=== PATIENT | female | born 1945 | race Caucasian/White ===

== ENCOUNTER → 2021-10-20 10:13 | Outpatient (BNVA) | payer OTHER, SELFPAY | PROVIDERS: PCP Internal Medicine; Visit Provider Nurse Practitioner Family | DX: Z13.89 Encounter for screening for other disorder (principal) ==

== ENCOUNTER → 2022-12-26 07:22 | Outpatient (BNVA) | payer OTHER, SELFPAY | PROVIDERS: PCP Internal Medicine; Visit Provider Psychiatry & Neurology Neurology ==

== ENCOUNTER 2023-04-19 11:20 | Outpatient (AMB) | payer OTHER, SELFPAY ==
--- NOTE | 2023-04-19 11:24 | A.OFFVIS_ITS ---
Intake Vital Signs 04/19/23 11:26 Height 4 ft 9 in Weight 135 lb BMI 29.2 BP 122/58 L Blood Pressure Location Rt brachial Position Sitting Respiration 16 Pulse 85 Pulse Source Pulse Oximeter Pulse Oximetry (%) 95 Oxygen Delivery Method Room Air Intake Visit Reasons: 3m follow up Tremor-unable to lvm Intake Note: Pt presents to the office for a 3 month follow up tremors. Pt reports her tremors are a little worse. SHe states she thinks the gabapentin makes her very bloated, but she has continued to take it. She c/o really bad tingling of me feet . Allergies ciprofloxacin [From CIPRO] Allergy (Intermediate, Unverified 04/19/23 11:25) RASH From CIPRO Allergy (Intermediate, Uncoded 04/19/23 11:25) RASH Environmental Allergy (Unknown, Uncoded 04/19/23 11:25) SINUS PROBLEMS TO RAGWEED Medication List - Last Reconciled 04/19/23 by Sarai Garcias MD baclofen 5 - 20 mg (0.5 - 2 x 10 mg) PO DAILY PRN 30 days carisoprodol 350 mg PO TID PRN 7 days desvenlafaxine succinate ER 50 mg PO DAILY desvenlafaxine succinate ER 25 mg PO DAILY eszopiclone 3 mg PO BEDTIME PRN famotidine 40 mg PO BID fluoride (sodium) 1.1% (Denta 5000 Plus) appl PO BEDTIME gabapentin 200 mg (2 x 100 mg) PO QAM 90 days gabapentin 300 mg PO BID 90 days lamotrigine 225 mg PO BEDTIME lisinopril 20 mg PO DAILY memantine 14 mg PO DAILY memantine 21 mg PO DAILY HPI HPI Comments History of Present Illness Details 77yr-old female presents for f/u visit.s he is here for follow up of tremors, ? nerve pain - unbearable itching in her feet at rest, at night. Increase in gabapentin helped her. SHe also uses marijuana sometimes she also has spinal stenosis and cord ? compression.( DR. Marquez has reports ) she says she saw a neurosurgeon 4 years ago . she denies any new symptoms. SHe had an episode of muscle cramps in her neck area- about 7 months ago - she was given baclofen but not effective. she thinks carsiprodol would have helped but by the time she got the prescription filled. No further episodes since then. Pt denies any significant interval medical changes. She had 40 TMS treatments last year. she had another course of TMS and feels she did not respond.SHe is going to go on ketamine- Dr. Hansen She again wonders about ET plus diagnosis and risk for development of PD. Her tremor is worse. she has trouble writing She is having more fibromyalgia symptoms and muscle tightness.she reports intermittent swelling of distal LE. [facility] Medical History Foot pain, bilateral Restless legs syndrome (RLS) Depression Surgical History H/O wrist surgery Hx of cholecystectomy History of hip surgery Family History Father Diabetes Parkinsons disease Mother HBP (high blood pressure) Heart murmur Maternal Grandmother Parkinsons disease Maternal Uncle Parkinsons disease Social History Alcohol intake: current Alcohol intake frequency: holidays/special occasions only Patient Tobacco Use Status: Former Tobacco user Quit Date: 1990 Substance Use Type: Marijuana Physical Exam Vital Signs: Last Vital Signs Pulse 85 04/19/23 11:26 Resp 16 04/19/23 11:26 BP 122/58 L 04/19/23 11:26 Pulse Ox 95 04/19/23 11:26 Oxygen Delivery Method Room Air 04/19/23 11:26 BMI result Body Mass Index 29.2 Const General: cooperative and no acute distress Orientation/consciousness: patient oriented x3 HEENT Head: Yes normocephalic Resp Effort & Inspection: normal respiratory effort and [facility] Neuro Other: No tremors mild decreased FFM L>R Antalgic gait, decreased arm swings L>R No perioral movements General: patient oriented x3 and CN's II-XI intact bilaterally Cognition (Neuro): normal cognition Motor exam (neuro): 5/5 motor strength present throughout Deep tendon reflexes (DTR's): Right triceps reflex intensity grade: 2+, Left triceps reflex intensity grade: 2+, Rt Biceps (C5, C6): 2+, Left biceps reflex intensity grade: 2+, Right brachioradialis reflex intensity grade: 2+, Left brachioradialis reflex intensity grade: 2+, Right patellar reflex intensity grade: 3+ and Left patellar reflex intensity grade: 3+ Psych Appearance: grossly normal Mental Status: mental status grossly normal Speech and movement: Clear speech present Affect: normal affect Attitude: cooperative Thought process: Normal thought process present Thought content: Normal thought content present Insight: Good insight present (Psych) Judgement: Good judgement present (Psych) Assessment & Plan Assessment & Plan (1) Tremor: Comment: ? medication induced Code(s): R25.1 - Tremor, unspecified (2) Gait difficulty: Comment: spinal stenosis Code(s): R26.9 - Unspecified abnormalities of gait and mobility (3) Foot pain, bilateral: Comment: episodic severe pain, itching , more at rest and night ? akathesia? restless legs Code(s): M79.671 - Pain in right foot; M79.672 - Pain in left foot Plan Decrease Gabapentin 200mg bid I will add ropinirole XR 2mg qhs Tremors are mild - no evidence of parkinsons - will follow up clinically This was a counseling predominated session - more than 50 % of the times was spent on discussing her diagnosis, pain management etc. Memantine XR 28 mg for migraines and cognition Medications: New ropinirole ER 2 mg PO BEDTIME 30 tabs 3RF Changed From gabapentin may take extra 100mg q evening prn pain 200 mg (2 x 100 mg) PO QAM 270 caps 3RF 90 days To gabapentin 200 mg (2 x 100 mg) PO BID 360 caps 3RF 90 days From memantine 21 mg PO DAILY 30 ea 0RF To memantine 28 mg PO DAILY 30 ea 6RF Discontinued gabapentin Discontinued Reason: Patient no longer taking 300 mg PO BID 90 days 180 caps 1RF Coding Level of Care Code Est Pt Level 4 (65764) Diagnoses Tremor R25.1 Gait difficulty R26.9 Foot pain, bilateral M79.671; M79.672
[2023-04-19 11:26] VITALS: BP 122/58; PULSE 85; RESP 16; O2SAT 95; BMI 29.2
== END 2023-04-19 11:44 | disposition home or self-care (01) ==
PROVIDERS: PCP Internal Medicine; Visit Provider Psychiatry & Neurology Neurology
DX: R25.1 Tremor, unspecified (principal); R26.9 Unspecified abnormalities of gait and mobility; M79.671 Pain in right foot; M79.672 Pain in left foot
CPT/HCPCS: 99214

== ENCOUNTER → 2023-04-19 11:20 | Outpatient (BNVA) | payer OTHER, SELFPAY | PROVIDERS: PCP Internal Medicine; Visit Provider Psychiatry & Neurology Neurology | DX: R25.1 Tremor, unspecified (principal); R26.9 Unspecified abnormalities of gait and mobility; M79.671 Pain in right foot; M79.672 Pain in left foot ==

== ENCOUNTER 2023-09-10 12:35 | Outpatient (AMB) | payer OTHER, SELFPAY ==
--- NOTE | 2023-09-10 12:44 | A.OFFVIS_ITS ---
Intake Vital Signs 09/10/23 12:45 Height 4 ft 9 in Weight 135 lb BMI 29.2 BP 112/64 Blood Pressure Location Rt brachial Position Sitting Respiration 16 Pulse 89 Pulse Source Pulse Oximeter Pulse Oximetry (%) 98 Oxygen Delivery Method Room Air Intake Visit Reasons: 4 mnts f/u for Tremors-CONF Intake Note: Pt presents to the office for 4 month follow up for tremors. Retail Loss Prevention Officer Required: No Allergies ciprofloxacin [From CIPRO] Allergy (Intermediate, Unverified 09/10/23 12:45) RASH From CIPRO Allergy (Intermediate, Uncoded 09/10/23 12:45) RASH Environmental Allergy (Unknown, Uncoded 09/10/23 12:45) SINUS PROBLEMS TO RAGWEED HPI HPI Comments History of Present Illness Details 77yr-old female presents for f/u visit.s he is here for follow up of tremors. Nerve pain is better. Gabapentin with Ropinirole has helped her. SHe also uses marijuana sometimes she also has spinal stenosis and cord ? compression.( DR. Marquez has reports ) she says she saw a neurosurgeon 4 years ago . she denies any new symptoms. Pt denies any significant interval medical changes. She had 40 TMS treatments last year. she had another course of TMS and feels she did not respond.SHe did not do well with ketamine so she restarted TMS which seems to be helping now. She again wonders about ET plus diagnosis and risk for development of PD. She is having more fibromyalgia symptoms and muscle tightness.she reports intermittent swelling of distal LE. [facility] Medical History Foot pain, bilateral Restless legs syndrome (RLS) Depression Surgical History H/O wrist surgery Hx of cholecystectomy History of hip surgery Family History Father Diabetes Parkinsons disease Mother HBP (high blood pressure) Heart murmur Maternal Grandmother Parkinsons disease Maternal Uncle Parkinsons disease Social History Alcohol intake: current Alcohol intake frequency: holidays/special occasions only Patient Tobacco Use Status: Former Tobacco user Quit Date: 1990 Substance Use Type: Marijuana Physical Exam Vital Signs: Last Vital Signs Pulse 89 09/10/23 12:45 Resp 16 09/10/23 12:45 BP 112/64 09/10/23 12:45 Pulse Ox 98 09/10/23 12:45 Oxygen Delivery Method Room Air 09/10/23 12:45 BMI result Body Mass Index 29.2 Const General: cooperative and no acute distress Orientation/consciousness: patient oriented x3 HEENT Head: Yes normocephalic Resp Effort & Inspection: normal respiratory effort and able to speak in complete sentences Neuro Other: No tremors mild decreased FFM L>R Antalgic gait, decreased arm swings L>R No perioral movements General: patient oriented x3 and CN's II-XI intact bilaterally Cognition (Neuro): normal cognition Motor exam (neuro): 5/5 motor strength present throughout Deep tendon reflexes (DTR's): Right triceps reflex intensity grade: 2+, Left triceps reflex intensity grade: 2+, Rt Biceps (C5, C6): 2+, Left biceps reflex intensity grade: 2+, Right brachioradialis reflex intensity grade: 2+, Left brachioradialis reflex intensity grade: 2+, Right patellar reflex intensity grade: 3+ and Left patellar reflex intensity grade: 3+ Psych Appearance: grossly normal Mental Status: mental status grossly normal Speech and movement: Clear speech present Affect: normal affect Attitude: cooperative Thought process: Normal thought process present Thought content: Normal thought content present Insight: Good insight present (Psych) Judgement: Good judgement present (Psych) Assessment & Plan Assessment & Plan (1) Tremor: Comment: ? medication induced Code(s): R25.1 - Tremor, unspecified (2) Gait difficulty: Comment: spinal stenosis Code(s): R26.9 - Unspecified abnormalities of gait and mobility (3) Foot pain, bilateral: Comment: episodic severe pain, itching , more at rest and night ? akathesia? restless legs Code(s): M79.671 - Pain in right foot; M79.672 - Pain in left foot Plan Gabapentin 200mg bid Ropinirole XR 2mg qhs Tremors are mild - no evidence of parkinsons - will follow up clinically . Memantine XR 28 mg for migraines and cognition Coding Level of Care Code Est Pt Level 4 (84939) Diagnoses Tremor R25.1 Gait difficulty R26.9 Foot pain, bilateral M79.671; M79.672
[2023-09-10 12:45] VITALS: BP 112/64; PULSE 89; RESP 16; O2SAT 98; BMI 29.2
== END 2023-09-10 13:02 | disposition home or self-care (01) ==
LOC: HO.HSMS 12:35
PROVIDERS: PCP Internal Medicine; Visit Provider Psychiatry & Neurology Neurology
DX: R25.1 Tremor, unspecified (principal); R26.9 Unspecified abnormalities of gait and mobility; M79.671 Pain in right foot; M79.672 Pain in left foot
CPT/HCPCS: 99214

== ENCOUNTER → 2023-09-10 12:35 | Outpatient (BNVA) | payer OTHER, SELFPAY | PROVIDERS: PCP Internal Medicine; Visit Provider Psychiatry & Neurology Neurology ==

== ENCOUNTER 2024-03-10 10:31 | Outpatient (AMB) | payer OTHER, SELFPAY ==
--- NOTE | 2024-03-10 10:33 | MHC.OFFVIS ---
Vital Signs 03/10/24 10:35 Height 4 ft 9 in Weight 142 lb BMI 30.7 BP 136/68 Blood Pressure Location Rt brachial Position Sitting Respiration 16 Pulse 71 Pulse Source Pulse Oximeter Pulse Oximetry (%) 95 Oxygen Delivery Method Room Air Intake Visit Reasons: 6 mo f/u - CONF Intake Note: Pt presents for a 6 month follow up for tremors. Strand And Binder Controller Required: No Allergies ciprofloxacin [From CIPRO] Allergy (Intermediate, Verified 03/10/24 10:34) RASH From CIPRO Allergy (Intermediate, Uncoded 03/10/24 10:34) RASH Environmental Allergy (Unknown, Uncoded 03/10/24 10:34) SINUS PROBLEMS TO RAGWEED Medication List - Last Reconciled 03/10/24 by Sarai Garcias MD baclofen 5 - 20 mg (0.5 - 2 x 10 mg) PO DAILY PRN 30 days carisoprodol 350 mg PO TID PRN 7 days desvenlafaxine succinate ER 50 mg PO DAILY desvenlafaxine succinate ER 25 mg PO DAILY eszopiclone 3 mg PO BEDTIME PRN famotidine 40 mg PO BID fluoride (sodium) 1.1% (Denta 5000 Plus) appl PO BEDTIME gabapentin 200 mg (2 x 100 mg) PO BID 90 days lamotrigine 225 mg PO BEDTIME lisinopril 20 mg PO DAILY memantine 28 mg PO DAILY paroxetine HCl (Paxil) 20 mg PO DAILY ropinirole ER 2 mg PO BEDTIME HPI Comments Details: 78yr-old female presents for f/u visit.she is here for follow up of tremors.Tremors are stable she has pain in her shoulder neck etc.she has trouble walking. . Gabapentin with Ropinirole has helped her restless legs like symptoms. SHe also uses marijuana sometimes she also has spinal stenosis and cord ? compression.( DR. Marquez has reports ) she says she saw a neurosurgeon 4 years ago . she restarted TMS this year and is responding . She again wonders about ET plus diagnosis and risk for development of PD. She is having more fibromyalgia symptoms and muscle tightness. [facility] Medical History Foot pain, bilateral Restless legs syndrome (RLS) Depression Surgical History H/O wrist surgery Hx of cholecystectomy History of hip surgery Family History Father Diabetes Parkinsons disease Mother HBP (high blood pressure) Heart murmur Maternal Grandmother Parkinsons disease Maternal Uncle Parkinsons disease Social History Alcohol intake: current Alcohol intake frequency: holidays/special occasions only Patient Tobacco Use Status: Former Tobacco user Substance Use Type: Marijuana Physical Exam Vital Signs: Last Vital Signs Pulse 71 03/10/24 10:35 Resp 16 03/10/24 10:35 BP 136/68 03/10/24 10:35 Pulse Ox 95 03/10/24 10:35 Oxygen Delivery Method Room Air 03/10/24 10:35 BMI result Body Mass Index 30.7 Const General: cooperative and no acute distress Orientation/consciousness: patient oriented x3 HEENT Head: Yes normocephalic Resp Effort & Inspection: normal respiratory effort and able to speak in complete sentences Neuro Other: No tremors mild decreased FFM L>R Antalgic gait, decreased arm swings L>R No perioral movements General: patient oriented x3 and CN's II-XI intact bilaterally Cognition (Neuro): normal cognition Motor exam (neuro): 5/5 motor strength present throughout Psych Appearance: grossly normal Mental Status: mental status grossly normal Speech and movement: Clear speech present Affect: normal affect Attitude: cooperative Thought process: Normal thought process present Thought content: Normal thought content present Insight: Good insight present (Psych) Judgement: Good judgement present (Psych) Assessment & Plan Assessment & Plan (1) Tremor: Comment: ? medication induced Code(s): R25.1 - Tremor, unspecified Category: Medical (2) Gait difficulty: Comment: spinal stenosis Code(s): R26.9 - Unspecified abnormalities of gait and mobility Category: Medical (3) Foot pain, bilateral: Comment: episodic severe pain, itching , more at rest and night ? akathesia? restless legs Code(s): M79.671 - Pain in right foot; M79.672 - Pain in left foot Category: Medical Plan Gabapentin 200mg bid Ropinirole XR 2mg qhs Tremors are mild - no evidence of parkinsons - will follow up clinically . Memantine XR 28 mg for migraines and cognition PT for gait training and balance Orders: Orders PT Evaluation and Treatment Today R26.9 - Unspecified abnormalities of gait and mobility Scribe Plan - Not visible on output: Reviewed possible medication side effects, including but not limited to drowsiness, dizziness. Coding Level of Care Code Est Pt Level 4 (96036) Complex EM visit Add On G2211 Diagnoses Tremor R25.1 Gait difficulty R26.9 Foot pain, bilateral M79.671; M79.672
[2024-03-10 10:35] VITALS: BP 136/68; PULSE 71; RESP 16; O2SAT 95; BMI 30.7
== END 2024-03-10 10:58 | disposition home or self-care (01) ==
PROVIDERS: PCP Internal Medicine; Visit Provider Psychiatry & Neurology Neurology
DX: R25.1 Tremor, unspecified (principal); R26.9 Unspecified abnormalities of gait and mobility; M79.671 Pain in right foot; M79.672 Pain in left foot
CPT/HCPCS: 99214

== ENCOUNTER → 2024-03-10 10:31 | Outpatient (BNVA) | payer OTHER, SELFPAY | PROVIDERS: PCP Internal Medicine; Visit Provider Psychiatry & Neurology Neurology ==

== ENCOUNTER 2025-03-08 10:03 | Outpatient (AMB) | payer OTHER, SELFPAY ==
--- OUTSIDE RECORDS SUMMARY | 2024-12-30 06:15 | XMS_ITS ---
Author Organization [facility] Address [address] [place] [phone] Care Team Providers Care Monitor And Storage Bin Tender Name Role Phone JESSI GUSTAFSON Primary Care Provider REASON FOR VISIT 3mo Encounters Encounter Location Date Provider Diagnosis [facility] [address] [place] [address] 12/30/2024 JESSI GUSTAFSON PLAN OF TREATMENT Next Appt Details Provider Name:JESSI GUSTAFSON , 04/07/2025 09:30:00 AM, [address] [place], [address],
--- OUTSIDE RECORDS SUMMARY | 2024-12-30 09:15 | XMS_ITS ---
Author Organization [facility] Address [address] [place] [id number] Care Team Providers Care Combatant Diver Qualified Name Role Phone JESSI GUSTAFSON Primary Care Provider REASON FOR VISIT 41/ 3mo Encounters Encounter Location Date Provider Diagnosis [address] [address] 12/30/2024 JESSI GUSTAFSON PLAN OF TREATMENT Next Appt Details Provider Name:JESSI GUSTAFSON , 04/07/2025 09:30:00 AM, [address] [place], [address],
--- OUTSIDE RECORDS SUMMARY | 2024-12-30 11:02 | XMS_ITS ---
Author Organization [facility] Address [address] [place] [phone] Care Team Providers Care Lead Teacher Name Role Phone JESSI GUSTAFSON Primary Care Provider REASON FOR VISIT (w) Cancellation Encounters Encounter Location Date Provider Diagnosis [address] [address] 12/30/2024 JESSI GUSTAFSON PLAN OF TREATMENT Next Appt Details Provider Name:JESSI GUSTAFSON , 04/07/2025 09:30:00 AM, [address] [place], [address],
--- OUTSIDE RECORDS SUMMARY | 2025-01-04 12:00 | XMS_ITS ---
Author Organization [facility] Address [address] [place], [place] [id number] Care Team Providers Care Vegetable Grader Name Role Phone JESSI GUSTAFSON Primary Care Provider ALLERGIES Allergen (clinical drug ingredient) Drug/Non Drug Allergy documented on EMR Reaction Allergy Type Onset Date Status ciprofloxacin Cipro vomiting and diarrhea Drug Allergy Active REASON FOR VISIT 3 mo follow up, patient was started on Ritalin by her psychiatrist 'about a week ago' but does not know if LA or not or MG strangth MEDICATIONS Medication SIG (Take, Route, Frequency, Duration) Notes Start Date End Date Status LORazepam 0.5 MG 1 tablet as needed O rally Once a day Active Lunesta 3 MG 1 tablet immediately before bedtime Orally Once a day Active Robinul 1 MG 1 tablet Orally Once a day Active LaMICtal 150 MG 1 tablet Orally Once a day for 30 day(s) Active Gabapentin 100 MG 2 capsule Orally 2 t imes daily Active Wegovy 0.5 MG/0.5ML 0.5 mL Subcutaneous every 7 days for 28 day(s) 01/04/2025 Active Lisinopril 10 MG 1 1/2 tablet Orally Once a day Active fluvoxaMINE Maleate 25 MG 1 tablet Orall y Once a day Active Ritalin Active Baclofen 10 MG TAKE 1- 1 AND 1/2 TA BLET NEEDED ORALLY ONCE A DAY 90 DAYS for 90 Active Lidocaine HCl 5 % as directed External ly daily for 30 day(s) 06/04/2024 Active Triamcinolone Acetonide 0.1 % 1 application Externally Two times a day for 30 day(s) 06/03/2023 Active Famotidine 20 MG 1 tablet Orally Twic e a day for 90 days Active SOCIAL HISTORY Tobacco Use: Social History Observation Description Date Details (start date - stop date) Former Smoker NA - NA Sex Assigned At : Social History Observation Description Sex Assigned At Unknown Smoking Question Answer Notes Are you a: former smoker How long has it been since you last smoked? > 10 years VITAL SIGNS Height 55.00 in 01/04/2025 Weight 141.6 lbs 01/04/2025 Blood pressure systolic 116 mm Hg 01/05/20 25 Blood pressure diastolic 66 mm Hg 025 BMI 32.91 kg/m2 01/04/2025 Encounters Encounter Location Date Provider Diagnosis [facility] [address] [place] [address] 01/04/2025 JESSI GUSTAFSON Obesity, class 1 E66.811 and Essential (primary) hypertension I10 ASSESSMENTS Encounter Date Diagnosis Assessment Notes Treatment Notes Treatment Clinical Notes Section Notes 01/04/2025 Obesity, class 1 (ICD-10 - E66.811) 1.obesity: Tolerating initial dose of Wegovy. Will bump to 0.5 mg with her next fill and plan to recheck in 2 to 3 months. She will call with any side effect issues in the interim 2. Hypertension: Well-controlle d on present lisinopril. No changes made today 01/04/2025 Essential (primary) hypertension (ICD-10 - I10) 1.obesity: Tolerating initial dose of Wegovy. Will bump to 0.5 mg with her next fill and plan to recheck in 2 to 3 months. She will call with any side effect issues in the interim 2. Hypertension: Well-controlle d on present lisinopril. No changes made today PLAN OF TREATMENT Medication Medication Name Sig Start Date Stop Date Notes Wegovy 0.5 MG/0.5ML 0.5 mL Subcutaneous every 7 days for 28 day(s) 01/04/2025 Lisinopril 10 MG 1 1/2 tablet Orally Once a day Wegovy 0.25 MG/0.5ML 0.5 mL Subcutaneous every 7 days 08/29 Next Appt Details Provider Name:JESSI Richardson JANAY , 04/07/2025 09:30:00 AM, [address] [facility], [place], [address], Progress Notes * Examination Category Sub-Category Detail Notes Category Not es General Examination Heart: RSR, normal S1S2 Lungs: clear to auscultatio n Extremities: no edema General Appearance no apparent distress , pleasant Psych: alert, oriented X 3 Other normal affect History and Physical Notes * HPI (History of Present Illness) Category Sub-Category Detail Notes Category Not es General Patient is here for follow-up obesity issues. She has tolerated Wegovy at the initial dose. She has not lost much weight however thus far. She reports she was recently started on Ritalin by her psychiatrist and is found this helpful. She is feeling less tired and is able to be more active during the day. She has not had any nausea diarrhea or constipation with the Wegovy. She has had some heartburn which is responded to Tums
--- OUTSIDE RECORDS SUMMARY | 2025-01-18 06:30 | XMS_ITS ---
Author Organization [facility] Address [facility] [place], [place] [id number] Care Team Providers Care Irrigation Worker Name Role Phone JESSI GUSTAFSON Primary Care Provider REASON FOR VISIT (2) Wegovy MEDICATIONS Medication SIG (Take, Route, Frequency, Duration) Notes Start Date End Date Status Pantoprazole Sodium 40 MG 1 tablet 1/2 t o 1 hour before morning meal Orally Once a day for 30 day(s) 01/18/2025 Active PROBLEMS Problem Type ICD Code Onset Dates Problem Status W/U Status Risk SNOMED Code Notes Problem Chronic GERD (K21.9) Active confirmed [id number] Encounters Encounter Location Date Provider Diagnosis [address] [address] 01/18/2025 JESSI GUSTAFSON Chronic GERD K21.9 ASSESSMENTS Encounter Date Diagnosis Assessment Notes Treatment Notes Treatment Clinical Notes Section Notes 01/18/2025 Chronic GERD (ICD-10 - K21.9) PLAN OF TREATMENT Medication Medication Name Sig Start Date Stop Date Notes Pantoprazole Sodium 40 MG 1 tablet 1/2 t o 1 hour before morning meal Orally Once a day for 30 day(s) 01/18/2025 Next Appt Details Provider Name:JESSI Dylan GUSTAFSON , 04/07/2025 09:30:00 AM, [address] [place], [address],
--- NOTE | 2025-03-08 10:05 | A.OFFVIS_ITS ---
Vital Signs 03/08/25 10:06 Height 4 ft 9 in Weight 133 lb BMI 28.8 BP 122/68 Blood Pressure Location Lt brachial Position Sitting Pulse 113 H Pulse Source Pulse Oximeter Pulse Oximetry (%) 98 Oxygen Delivery Method Room Air Intake Visit Reasons: 1 yr follow up Intake Note: Follow up Unspecified abnormalities of gait and mobility, tremors - ? medication induced Corporate Specialist Required: No Accompanied by: Self / Same As Patient Allergies ciprofloxacin (From CIPRO) Allergy (Intermediate, Verified 03/08/25 10:06) RASH From CIPRO Allergy (Intermediate, Uncoded 03/10/24 10:34) RASH Environmental Allergy (Unknown, Uncoded 03/10/24 10:34) SINUS PROBLEMS TO RAGWEED HPI Comments Details: 79yr-old female presents for f/u visit.she is here for follow up of tremors.Tremors are stable she reports increase in foot pain mainly plantar area.- lidocaine helps .No falls. History from 1 year ago 2023-Tremors are stable she has pain in her shoulder neck etc.she has trouble walking. . Gabapentin with Ropinirole has helped her restless legs like symptoms. SHe also uses marijuana sometimes she also has spinal stenosis and cord ? compression.( DR. Marquez has reports ) she says she saw a neurosurgeon 4 years ago . she restarted TMS this year and is responding . She again wonders about ET plus diagnosis and risk for development of PD. She is having more fibromyalgia symptoms and muscle tightness. [facility] Medical History Foot pain, bilateral Restless legs syndrome (RLS) Depression Surgical History H/O wrist surgery Hx of cholecystectomy History of hip surgery Family History Father Diabetes Parkinsons disease Mother HBP (high blood pressure) Heart murmur Maternal Grandmother Parkinsons disease Maternal Uncle Parkinsons disease Social History Alcohol intake: current Alcohol intake frequency: holidays/special occasions only Patient Tobacco Use Status: Former Tobacco user Substance Use Type: Marijuana Physical Exam Vital Signs: Last Vital Signs Pulse 113 H 03/08/25 10:06 BP 122/68 03/08/25 10:06 Pulse Ox 98 03/08/25 10:06 Oxygen Delivery Method Room Air 03/08/25 10:06 BMI result Body Mass Index 28.8 Const General: cooperative and no acute distress Orientation/consciousness: patient oriented x3 HEENT Head: Yes normocephalic Resp Effort & Inspection: normal respiratory effort and able to speak in complete sentences Neuro Other: No tremors mild decreased FFM L>R Antalgic gait, decreased arm swings L>R No perioral movements General: patient oriented x3 and CN's II-XI intact bilaterally Cognition (Neuro): normal cognition Motor exam (neuro): 5/5 motor strength present throughout Psych Appearance: grossly normal Mental Status: mental status grossly normal Speech and movement: Clear speech present Affect: normal affect Attitude: cooperative Thought process: Normal thought process present Thought content: Normal thought content present Insight: Good insight present (Psych) Judgement: Good judgement present (Psych) Assessment & Plan Assessment & Plan (1) Tremor: Comment: ? medication induced Code(s): R25.1 - Tremor, unspecified Category: Medical (2) Gait difficulty: Comment: spinal stenosis Code(s): R26.9 - Unspecified abnormalities of gait and mobility Category: Medical (3) Foot pain, bilateral: Comment: episodic severe pain, itching , more at rest and night ? akathesia? restless legs Code(s): M79.671 - Pain in right foot; M79.672 - Pain in left foot Category: Medical Plan Gabapentin 200mg bid Ropinirole XR 2mg qhs Tremors are mild - no evidence of parkinsons - will follow up clinically . Memantine XR 28 mg for migraines and cognition PT- she declines Scribe Plan - Not visible on output: Reviewed possible medication side effects, including but not limited to drowsiness, dizziness. Coding Level of Care Code Est Pt Level 4 (31742) Complex EM visit Add On G2211 Diagnoses Tremor R25.1 Gait difficulty R26.9 Foot pain, bilateral M79.671; M79.672
[2025-03-08 10:06] VITALS: BP 122/68; PULSE 113; O2SAT 98; BMI 28.8
--- OUTSIDE RECORDS SUMMARY | 2025-03-08 11:51 | XMS_ITS | Patient Health Record ---
Author Organization [facility] Dilmary liriano [place] Address [address] [address] Care Team Providers Care Office Assistance Name Role Phone Sameer Marquez MD Primary Care Provider Unavailab Tristin Coats Unavailable [phone] Allergies Allergen (clinical drug ingredient) Drug/Non Drug Allergy documented on EMR Reaction Allergy Type Onset Date Status Ceftin vomiting Drug Allergy Active ciprofloxacin Cipro vomiting, diarrhea Drug Allergy Active meperidine Demerol Unknown Drug Allergy Active Keflex vomiting Drug Allergy Active Levaquin vomiting, diarrhea Drug Allergy Active cefaclor Cefaclor vomiting Drug Allergy Active Reason For Referral No Information Medications Medication SIG (Take, Route, Frequency, Duration) Notes Start Date End Date Status Lisinopril 10/2.5 mg Not-Taking Gabapentin 500MG Active LaMICtal 150 MG 2 tablets Orally Twi ce a day Active Clotrimazole-Betamethason e 1-0.05 % 1 application to affected area Externally Twice a day to affected areas on feet; Duration: 30 days 12/27/2021 Active Pexeva 60 MG 1 tablet in the morn ing Orally Once a day; Duration: 30 day(s) Not-Taking Famotidine 40 MG 1 tablet at bedtime Orally Once a day Active Wellbutrin 100 MG 1 tablet Orally Twic e a day Not-Taking Lunesta 3 MG 1 tablet immediately before bedtime Orally Once a day Active Memantine HCl Active Lisinopril-hydroCHLOROthi azide Active Lisinopril Not-Takin g ARIPiprazole Active PROzac 20 MG 1 capsule Orally Onc e a day; Duration: 30 day(s) Not-Taking Osphena Not-Taking Social History Tobacco Use: Social History Observation Description Date Details (start date - stop date) Former Smoker NA - NA Tobacco Use/Smoking Question Answer Notes Are you a: former smoker When did you stop smoking? 1990 Additional Findings: Tobacco Non-User Current no n-smoker,Ex-cigarette smoker Tobacco use other than smoking: Question Answer Notes Are you an other tobacco user? No Problems Problem Type SNOMED Code ICD Code Onset Dates Problem Status W/U Status Risk Notes Problem Plantar wart (21439812) Plantar wart (B07.0) Active confirmed Problem Bilateral atherosclerosis of arteries of lower limbs (disorder) (67816968076812712 ) Atherosclerosis of muscogee artery of both lower extremities, with unspecified presence of clinical manifestation (I70.203) Active confirmed Plan Of Treatment Pending Test Test Name Order Date [id number] NAIL, 6 OR MORE 09/05/2015 [id number] Destruction, 1-14 12/27/2021 [id number] SKIN LESIONS, OVER 4 09/05/19 16 Insurance Providers Payer Name Payer Address Payer Phone Subscriber Number Group Number Insured Name Patient Relationship to Insured Coverage Start Date Coverage End Date [facility] ([facility]) [address] [place] [address] [phone] [id number] Sonia Mtz Self - patient is the insured Medical (General) History Medical History History ICD Code reflux measles keloids Hiatal hernia headaches/migraines fibromyalgia depression chicken pox broken bones Anxiety disorder bipolar disorder Lung disease Cataracts Psoriasis Skin ulcer High blood pressure Osteoporosis Broken bones covid-19 Back,Hip,and Knee pain Numbness chronic sinusitis Warts Joint implants/screws HTN Surgical History Surgery Date(Month/Year) gall bladder 2011 appendectomy 1966 cataract surgery
--- OUTSIDE RECORDS SUMMARY | 2025-03-08 11:52 | XMS_ITS | Clinical Summary ---
Author Organization [facility] Address [address] [place] [address] Care Team Providers Care Maintenance And Utilities Supervisor Name Role Phone Sameer Marquez MD Primary Care Provider Unavail able Allergies Active Allergy Reactions Criticality Noted Date Comments Ciprofloxacin Medications Medication Sig Dispensed Refills Start Date End Date Status buPROPion (WELLBUTRIN XL) 150 MG 24 hr tablet 0 08/28/2020 Active eszopiclone (LUNESTA) 3 MG TABS tablet TAKE 1 TABLET BY MOUTH AT BEDTIME FOR INSOMNIA 0 07/23/2020 Active lisinopril (PRINIVIL,ZESTRIL) tablet 20 mg lisinopril 20 mg tablet 0 Active OSPHENA 60 MG TABS TAKE 1 TABLET BY MOUTH EVERY DAY WITH MEALS 0 08/17/2020 Active PEXEVA 30 MG tablet TAKE 2 TABLETS BY MOUTH IN THE MORNING 0 07/23/2020 Active gabapentin (NEURONTIN) 100 MG capsule 0 09/06/2020 Active memantine (NAMENDA) 10 MG tablet Take 10 mg by mouth 2 (two) times a day. 0 Active Active Problems Problem Noted Date Diagnosed Date Subacromial bursitis of right shoulder joint 05/2021 Impingement syndrome of right shoulder Family History Medical History Relation Name Comments Diabetes Father Hypertension Mother Relation Name Status Comments Father Mother Social History Tobacco Use Types Packs/Day Years Used Date Smoking Tobacco: Never Assessed Sex and Gender Information Value Date Recorded Sex Assigned at Not on file Gender Identity Not on file Sexual Orientation Not on file Job Start Date Occupation Industry Not on file Not on file Not on file Last Filed Vital Signs Vital Sign Reading Time Taken Comments Blood Pressure - - Pulse - - Temperature - - Respiratory Rate - - Oxygen Saturation - - Inhaled Oxygen Concentration - - Weight 65.8 kg (145 lb) 09/08/2020 2:10 PM EST Height 147.3 cm (4' 10 ) 09/08/2020 2:10 PM EST Body Mass Index 30.31 09/08/2020 2:10 PM EST Plan of Treatment Health Maintenance Due Date Last Done Comments Hepatitis C Screening 1945 COVID-19 Vaccine (#1) 04/07/1946 Depression Screening 1957 BMI Counseling 10/07/1963 Preventative Health Evaluation 10/07/1963 DTap / Tdap / Td (1 - Tdap) 1964 Shingrix-Zoster Vaccine (1 of 2) 10/07/1995 Fall Risk Assessment 2010 Osteoporosis Screening (DEXA Scan) 2010 Pneumococcal Vaccine (1 of 1 - PCV) 2010 RSV Adult > 60+ Yrs or Pregn ant (1 - 1-dose 75+ series) 2020 Influenza Vaccine (#1) 2025 06/20/2020 Hepatitis B Vaccines Aged Out No long er eligible based on patient's age to complete this topic RSV Ped < 20 months Aged Out No longe r eligible based on patient's age to complete this topic Care Teams Maintenance And Utilities Supervisor Relationship Specialty Start Date End Date Sameer Marquez MD PCP - General Internal Medicine 03/26/18
--- OUTSIDE RECORDS SUMMARY | 2025-03-08 11:52 | XMS_ITS | Patient Health Record ---
Author Organization [facility] Address [address], [place] [id number] Care Team Providers Care [employer] Attendant Name Role Phone JESSI GUSTAFSON Primary Care Provider [phone] [place], NURSING [facility] [phone] ALLERGIES Allergen (clinical drug ingredient) Drug/Non Drug Allergy documented on EMR Reaction Allergy Type Onset Date Status ciprofloxacin Cipro vomiting and diarrhea Drug Allergy Active REASON FOR REFERRAL Reason Physical Therapy Cor e strengthening Eval and treat Diagnosis 1 Gait instability (R2 6.81) Referral Organization [facility] Referring Provider First Name [facility] Referring Provider Last Name RANCHO CUCAMONGA Referring Provider [facility] Referred Provider Specialty Physical [facility] Referral Priority Routine Reason Appt PT Eval and ganga at Diagnosis 1 Leg weakness, bilate ral (R29.898) Diagnosis 2 Gait instability (R2 6.81) Referral Organization [facility] Referring Provider First Name JESSI Referring Provider Last Name RANCHO CUCAMONGA Referring Provider [facility] Internal edicine Referred Provider Specialty Physical [facility] Referral Priority Routine MEDICATIONS Medication SIG (Take, Route, Frequency, Duration) Notes Start Date End Date Status Pantoprazole Sodium 40 MG 1 tablet 1/2 t o 1 hour before morning meal Orally Once a day for 30 day(s) 01/18/2025 Active Wegovy 0.5 MG/0.5ML 0.5 mL Subcutaneous every 7 days for 28 day(s) 01/04/2025 Active Lisinopril 10 MG 1 1/2 tablet Orally Once a day Active LORazepam 0.5 MG 1 tablet as needed O rally Once a day Active fluvoxaMINE Maleate 25 MG 1 tablet Orall y Once a day Active Lunesta 3 MG 1 tablet immediately before bedtime Orally Once a day Active Robinul 1 MG 1 tablet Orally Once a day Active LaMICtal 150 MG 1 tablet Orally Once a day for 30 day(s) Active Gabapentin 100 MG 2 capsule Orally 2 t imes daily Active Lidocaine HCl 5 % as directed External ly daily for 30 day(s) 06/04/2024 Active Triamcinolone Acetonide 0.1 % 1 application Externally Two times a day for 30 day(s) 06/03/2023 Active Famotidine 20 MG TAKE 1 TABLET BY CYNTHIA TH EVERY DAY for 90 Active Baclofen 10 MG TAKE 1- 1 AND 1/2 TA BLET NEEDED ORALLY ONCE A DAY 90 DAYS for 90 Active Ritalin Active IMMUNIZATIONS Vaccine Route Administration Date Status Comme nts Zoster recombinant SC Subcutaneous 05/04/2011 Administered Zoster recombinant Unknown 05/28/2019 Administered Zoster recombinant Unknown 08/13/2019 Administered Td (Tetanus Diphtheria) Unknown 01/14/2009 Administered Pneumococcal, PPV 23 Unknown 09/01/2013 Administered Pneumococcal Prevnar 13 IM Intramuscular 09/01/2013 Admini stered Pneumococcal Prevnar 13 Unknown 12/28/2020 Administered Moderna COVID-19 mRNA LNP-S PF Unknown 10/27/2020 Administered Moderna COVID-19 mRNA LNP-S PF Unknown 11/17/2020 Administered Influenza, Fluzone HD 65+ IM Intramuscular 05/31/2023 Admi nistered Influenza, Fluarix Quad Unknown 04/29/2013 Administered SOCIAL HISTORY Tobacco Use: Social History Observation Description Date Details (start date - stop date) Former Smoker NA - NA Sex Assigned At : Social History Observation Description Sex Assigned At Unknown Smoking Question Answer Notes Are you a: former smoker How long has it been since you last smoked? 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.81) Active confirmed 44238436 Problem Chronic GERD (K21.9) Active confirmed 110515191 Problem Bipolar affective disorder, remission status unspecified (F31.9) Active confirmed 91364397 Problem Prediabetes (R73.03) Active confirmed 229542307 Problem Body mass index [BMI] 33.0-33.9, adult (Z68.33) Active confirmed 499683398 Problem Obesity, class 1 (E66.811) Active confirmed 854954280 Problem Essential (primary) hypertension (I10) Active confirmed Essential hypertension (81762830) Problem Pure hyperglyceridemia (E78.1) Active confirmed Pure hyperglyceridemia (695015439) VITAL SIGNS Blood pressure diastolic 66 mm Hg 01/04/2025 Height 55.00 in 01/04/2025 Blood pressure systolic 116 mm Hg 01/04/2025 Weight 141.6 lbs 01/04/2025 BMI 32.91 kg/m2 01/04/2025 Encounters Encounter Location Date Provider Diagnosis [address] [address] 06/02/2024 [place] [id number] 06/03/2024 JESSI RANCHO CUCAMONGA Generalized osteoarthritis M15.9 ; Essential (primary) hypertension I10 ; Bipolar affective disorder, remission status unspecified F31.9 and Gait instability R26.81 [place] [phone] 06/04/[address] [address] 08/19/[address] [address] 08/24/2024 JESSI RANCHO CUCAMONGA Leg weakness, bilateral R29.898 ; Gait instability R26.81 ; Fatty liver K76.0 ; Prediabetes R73.03 and Overweight E66.[address] [address] 09/08/[address] [place] [address] 09/18/2024 JESSI RANCHO CUCAMONGA Encounter for screening mammogram for malignant neoplasm of breast Z12.31 [facility] [address] [place] [address] 10/01/2024 JESSI JANAY Dyspnea on exertion R06.09 ; Essential (primary) hypertension I10 ; Other obesity due to excess calories E66.09 ; Body mass index [BMI] 33.0-33.9, adult Z68.33 ; Obesity, class 1 E66.811 ; Prediabetes R73.03 and Fatty liver K76.0 [facility] [address] [place] [address] 10/01/2024 [facility] [address] [address] 10/02/2024 [facility] [address] [address] 10/05/2024 [facility] Overweight E66.3 [facility] [address] [address] 10/14/2024 [facility] [address] [address] 10/23/[address] [address] 11/05/2024 JESSI RANCHO CUCAMONGA Abnormal mammogram R92.[address] [address] 12/30/2024 [facility] [address] [address] 12/30/2024 [facility] [address] [address] 12/30/2024 [facility] [address] [address] 01/04/2025 [facility] Obesity, class 1 E66.811 and Essential (primary) hypertension I10 [facility] [address] [address] 01/18/2025 JESSI RANCHO CUCAMONGA Chronic GERD K21.9 ASSESSMENTS Encounter Date Diagnosis Assessment Notes Treatment Notes Treatment Clinical Notes Section Notes 01/18/2025 Chronic GERD (ICD-10 - K21.9) 01/04/2025 Obesity, class 1 (ICD-10 - E66.811) 1.obesity: Tolerating initial dose of Wegovy. Will bump to 0.5 mg with her next fill and plan to recheck in 2 to 3 months. She will call with any side effect issues in the interim 2. Hypertension: Well-controlled on present lisinopril. No changes made today 01/04/2025 Essential (primary) hypertension (ICD-10 - I10) 1.obesity: Tolerating initial dose of Wegovy. Will bump to 0.5 mg with her next fill and plan to recheck in 2 to 3 months. She will call with any side effect issues in the interim 2. Hypertension: Well-controlled on present lisinopril. No changes made today 11/05/2024 Abnormal mammogram (ICD-10 - R92.8) 10/05/2024 Overweight (ICD-10 - E66.3) Pt taught self injection with Wegovy first inj given right lower abdomen waited 10 min no reaction. Pt demonstrated and verbalized understanding. Advised to call if she has any other questions or concerns in relations to wegovy. 09/18/2024 Encounter for screening mammogram for malignant neoplasm of breast (ICD-10 - Z12.31) 08/24/2024 Leg weakness, bilateral (ICD-10 - R29.898) 1. Bilateral leg weakness and gait instability: Agreed to trial of physical therapy after discussion today. Consider a second opinion from another neurologist if not beneficial 2. Fatty liver: Would benefit from weight loss in this regard 3. Prediabetes: Would benefit from weight loss in this regard 4.Overweight: We will attempt authorization for GLP-1 agonist given the above issues and struggles with weight loss. This issue also has been contributing significantly to her depression issues 08/24/2024 Gait instability (ICD-10 - R26.81) 1. Bilateral leg weakness and gait instability: Agreed to trial of physical therapy after discussion today. Consider a second opinion from another neurologist if not beneficial 2. Fatty liver: Would benefit from weight loss in this regard 3. Prediabetes: Would benefit from weight loss in this regard 4.Overweight: We will attempt authorization for GLP-1 agonist given the above issues and struggles with weight loss. This issue also has been contributing significantly to her depression issues 10/01/2024 Dyspnea on exertion (ICD-10 - R06.09) 1. Dyspnea on exertion: Will pursue a regadenoson MIBI to better assess and rule out any anginal cause 2. Hypertension: Well-controlled on present therapy. No changes made today 3. Obesity: Weight continues to creep up. She has fatty liver and prediabetes as well. Will reattempt GLP-1 agonist approval 4. Prediabetes: A1c was 5.9. Will recheck in December 03. Fatty liver: As above will reattempt GLP-1 agonist approval. Would benefit significantly from weight loss is limited in exercise ability due to arthritis issues and dyspnea. 10/01/2024 Essential (primary) hypertension (ICD-10 - I10) 1. Dyspnea on exertion: Will pursue a regadenoson MIBI to better assess and rule out any anginal cause 2. Hypertension: Well-controlled on present therapy. No changes made today 3. Obesity: Weight continues to creep up. She has fatty liver and prediabetes as well. Will reattempt GLP-1 agonist approval 4. Prediabetes: A1c was 5.9. Will recheck in December 03. Fatty liver: As above will reattempt GLP-1 agonist approval. Would benefit significantly from weight loss is limited in exercise ability due to arthritis issues and dyspnea. 06/03/2024 Generalized osteoarthritis (ICD-10 - M15.9) 1. Generalized osteoarthritis: Satisfied with Tylenol or occasional Advil use. 2. Hypertension: Stable on lisinopril Continue same 3. Bipolar : Follow closely with psychiatry. Appears stable at present 4. Gait instability: Will refer for physical therapy for core strengthening. 06/03/2024 Essential (primary) hypertension (ICD-10 - I10) 1. Generalized osteoarthritis: Satisfied with Tylenol or occasional Advil use. 2. Hypertension: Stable on lisinopril Continue same 3. Bipolar : Follow closely with psychiatry. Appears stable at present 4. Gait instability: Will refer for physical therapy for core strengthening. 06/03/2024 Bipolar affective disorder, remission status unspecified (ICD-10 - F31.9) 1. Generalized osteoarthritis: Satisfied with Tylenol or occasional Advil use. 2. Hypertension: Stable on lisinopril Continue same 3. Bipolar : Follow closely with psychiatry. Appears stable at present 4. Gait instability: Will refer for physical therapy for core strengthening. 10/01/2024 Other obesity due to excess calories (ICD-10 - E66.09) 1. Dyspnea on exertion: Will pursue a regadenoson MIBI to better assess and rule out any anginal cause 2. Hypertension: Well-controlled on present therapy. No changes made today 3. Obesity: Weight continues to creep up. She has fatty liver and prediabetes as well. Will reattempt GLP-1 agonist approval 4. Prediabetes: A1c was 5.9. Will recheck in December 03. Fatty liver: As above will reattempt GLP-1 agonist approval. Would benefit significantly from weight loss is limited in exercise ability due to arthritis issues and dyspnea. 08/24/2024 Fatty liver (ICD-10 - K76.0) 1. Bilateral leg weakness and gait instability: Agreed to trial of physical therapy after discussion today. Consider a second opinion from another neurologist if not beneficial 2. Fatty liver: Would benefit from weight loss in this regard 3. Prediabetes: Would benefit from weight loss in this regard 4.Overweight: We will attempt authorization for GLP-1 agonist given the above issues and struggles with weight loss. This issue also has been contributing significantly to her depression issues 06/03/2024 Gait instability (ICD-10 - R26.81) 1. Generalized osteoarthritis: Satisfied with Tylenol or occasional Advil use. 2. Hypertension: Stable on lisinopril Continue same 3. Bipolar : Follow closely with psychiatry. Appears stable at present 4. Gait instability: Will refer for physical therapy for core strengthening. 10/01/2024 Body mass index [BMI] 33.0-33.9, adult (ICD-10 - Z68.33) 1. Dyspnea on exertion: Will pursue a regadenoson MIBI to better assess and rule out any anginal cause 2. Hypertension: Well-controlled on present therapy. No changes made today 3. Obesity: Weight continues to creep up. She has fatty liver and prediabetes as well. Will reattempt GLP-1 agonist approval 4. Prediabetes: A1c was 5.9. Will recheck in December 03. Fatty liver: As above will reattempt GLP-1 agonist approval. Would benefit significantly from weight loss is limited in exercise ability due to arthritis issues and dyspnea. 08/24/2024 Prediabetes (ICD-10 - R73.03) 1. Bilateral leg weakness and gait instability: Agreed to trial of physical therapy after discussion today. Consider a second opinion from another neurologist if not beneficial 2. Fatty liver: Would benefit from weight loss in this regard 3. Prediabetes: Would benefit from weight loss in this regard 4.Overweight: We will attempt authorization for GLP-1 agonist given the above issues and struggles with weight loss. This issue also has been contributing significantly to her depression issues 10/01/2024 Obesity, class 1 (ICD-10 - E66.811) 1. Dyspnea on exertion: Will pursue a regadenoson MIBI to better assess and rule out any anginal cause 2. Hypertension: Well-controlled on present therapy. No changes made today 3. Obesity: Weight continues to creep up. She has fatty liver and prediabetes as well. Will reattempt GLP-1 agonist approval 4. Prediabetes: A1c was 5.9. Will recheck in December 03. Fatty liver: As above will reattempt GLP-1 agonist approval. Would benefit significantly from weight loss is limited in exercise ability due to arthritis issues and dyspnea. 08/24/2024 Overweight (ICD-10 - E66.3) 1. Bilateral leg weakness and gait instability: Agreed to trial of physical therapy after discussion today. Consider a second opinion from another neurologist if not beneficial 2. Fatty liver: Would benefit from weight loss in this regard 3. Prediabetes: Would benefit from weight loss in this regard 4.Overweight: We will attempt authorization for GLP-1 agonist given the above issues and struggles with weight loss. This issue also has been contributing significantly to her depression issues 10/01/2024 Prediabetes (ICD-10 - R73.03) 1. Dyspnea on exertion: Will pursue a regadenoson MIBI to better assess and rule out any anginal cause 2. Hypertension: Well-controlled on present therapy. No changes made today 3. Obesity: Weight continues to creep up. She has fatty liver and prediabetes as well. Will reattempt GLP-1 agonist approval 4. Prediabetes: A1c was 5.9. Will recheck in December 03. Fatty liver: As above will reattempt GLP-1 agonist approval. Would benefit significantly from weight loss is limited in exercise ability due to arthritis issues and dyspnea. 10/01/2024 Fatty liver (ICD-10 - K76.0) 1. Dyspnea on exertion: Will pursue a regadenoson MIBI to better assess and rule out any anginal cause 2. Hypertension: Well-controlled on present therapy. No changes made today 3. Obesity: Weight continues to creep up. She has fatty liver and prediabetes as well. Will reattempt GLP-1 agonist approval 4. Prediabetes: A1c was 5.9. Will recheck in December 03. Fatty liver: As above will reattempt GLP-1 agonist approval. Would benefit significantly from weight loss is limited in exercise ability due to arthritis issues and dyspnea. 10/05/2024 Other PLAN OF TREATMENT Pending Test Test Name Order Date 3D Tomosynthesis or Mammogra m Screening Bilateral, Perform Diagnostic Mammogram/3D Tomosynthesis and/or Ultrasound if warranted 11/05/2024 Next Appt Details Provider Name:JESSI GUSTAFSON , 04/07/2025 09:30:00 AM, [address] [place], [address], Insurance Providers Payer Name Payer Address Payer Phone Subscriber Number Group Number Insured Name Patient Relationship to Insured Coverage Start Date Coverage End Date [facility] [facility] [address] [place] [address] [phone] [id number] IMELDA JONES Self - patient is the insured MEDICAL (GENERAL) HISTORY Medical History History ICD Code depression fibromyalgia psoriasis Gastroesophageal reflux disease (GERD) hypertension tremor Surgical History Surgery Date(Month/Year) gallbladder rhinoplasty appendectomy
== END 2025-03-08 10:42 | disposition home or self-care (01) ==
LOC: HO.HSMS 10:04
PROVIDERS: PCP Internal Medicine; Visit Provider Psychiatry & Neurology Neurology
DX: R25.1 Tremor, unspecified (principal); R26.9 Unspecified abnormalities of gait and mobility; M79.671 Pain in right foot; M79.672 Pain in left foot
CPT/HCPCS: 99214